=== PATIENT | male | born 1960 | race Caucasian/White ===

== ENCOUNTER 2025-02-05 13:27 | Outpatient (CLI) | payer BC, MEDICARE, SELFPAY ==
--- NOTE | ~2025-02-05 | MR_ITS ---
MRI of the right knee Clinical history: Pain Technique: Coronal proton density and proton density-weighted images, sagittal proton-density and T2 fat-sat images, and axial proton-density fat-saturated images were acquired. Findings: There is increased signal of the ACL with intact fibers, compatible with mucoid degenerativ e change. Posterior cruciate ligament is intact. Medial collateral ligament and the lateral collatera l ligament complex are probably intact, though there is significant motion artifact on coronal sequen [place]aac. Popliteus tendon appears intact. There is a large radial tear at the posterior root of the medial meniscus. Possible superimposed hori zontal/oblique tearing of the posterior horn and body of medial meniscus. No lateral meniscal tear ev ident. 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 There is diffuse moderate to high-gra de chondral thinning of the femoral trochlea. There is extensive high-grade chondral malacia the medi al compartment on both sides. Small tricompartmental osteophytes are present. Extensor mechanism is intact. No significant joint effusion. Small Nolasco's cyst. Impression: Large radial tear of the posterior root of the medial meniscus. Possible superimposed horizontal tear of the posterior horn and body of the medial meniscus versus intrasubstance degenerative signal. Degenerative change of the knee, with extensive chondromalacia of the patellofemoral and medial gorge rtments in particular, as detailed above. Small Nolasco's cyst. Mucoid degenerative change of the ACL. Reviewed, dictated and finalized at [facility]. Impression: Large radial tear of the posterior root of the medial meniscus. Possible superi mposed horizontal tear of the posterior horn and body of the medial meniscus ve rsus intrasubstance degenerative signal. Degenerative change of the knee, with extensive chondromalacia of the patellofe moral and medial compartments in particular, as detailed above. Small Nolasco's cyst. Mucoid degenerative change of the ACL.
== END 2025-02-05 13:28 | disposition home or self-care (01) ==
LOC: GOSHIMG 13:28
PROVIDERS: PCP Nurse Practitioner Family; Visit Provider Nurse Practitioner Family
DX: S83.241A Other tear of medial meniscus, current injury, right knee, initial encounter (principal); X58.XXXA Exposure to other specified factors, initial encounter; M17.11 Unilateral primary osteoarthritis, right knee; M94.261 Chondromalacia, right knee; M71.21 Synovial cyst of popliteal space [Baker], right knee; M19.011 Primary osteoarthritis, right shoulder
CPT/HCPCS: 73721